=== PATIENT | male | born 1985 | race African-American/Black ===

== ENCOUNTER 2016-10-20 18:43 | Emergency (ER) | payer SELFPAY ==
[2016-10-20 19:00] VITALS: BP 88/58; PULSE 120; RESP 16; TEMP 99.4; O2SAT 98
[2016-10-20] MEDS ORDERED: SODIUM CHLOR 0.9% 1000 ML INJ 1,000 ML IV SCH (19:00)
[2016-10-20] MEDS ORDERED: SODIUM CHLOR 0.9% 250 ML INJ 250 ML IV ONE (19:00)
[2016-10-20] MEDS ORDERED: LIDOCAINE 1%/EPINEPHrine 1:100,000 SOLN 20 ML VIAL INFIL ONE (19:00)
--- NOTE | 2016-10-20 19:06 | PD ---
HPI Chief Complaint: Laceration/Skin Injury Time Seen by Provider: 18:56 Travel History International Travel<30 days: No Contact w/Intl Traveler<30days: No Traveled to known affect area: No History of Present Illness HPI This is a 31-year-old male who presents to the emergency department having been working on his stents in the yard when he felt a metal object stabbed him in the leg. He had a copious amount of bleeding. He says he bled through multiple towels at home. He tried to create a tourniquet out of the belt. Ultimately he was brought to the emergency Department. Here he feels very dizzy and lightheaded and doesn't feel like he can stand. PFSH Past Medical History Medical History: Denies Significant Hx Social History Tobacco Use: No Allergies-Medications (Allergen,Severity, Reaction): Coded Allergies: No Known Allergies (Unverified , 10/20/16) Reported Meds & Prescriptions Reported Meds & Active Scripts Active No Active Prescriptions or Reported Medications Review of Systems ROS Limitations: Clinical Condition Physical Exam Narrative GENERAL: Ill-appearing, diaphoretic SKIN: 2 cm laceration on the medial distal tibia which has pulsatile bleeding. HEAD: Atraumatic. Normocephalic. EYES: Pupils equal and round. No injection or drainage. ENT: Moist mucous membranes NECK: Trachea midline. CARDIOVASCULAR: Tachycardic. No murmur appreciated. 2+ DP pulse with normal capillary refill. RESPIRATORY: Clear to auscultation. Breath sounds equal bilaterally. GASTROINTESTINAL: Abdomen soft, non-tender, nondistended. MUSCULOSKELETAL: No obvious deformities. NEUROLOGICAL: Awake and alert. No obvious cranial nerve deficits. Moving all extremities. PSYCHIATRIC: Appropriate mood and affect; insight and judgment normal. Data Data Last Documented VS Vital Signs Date Time Temp Pulse Resp B/P Pulse Ox O2 Delivery O2 Flow Rate FiO2 10/20/16 21:37 98.4 70 18 110/61 98 Room Air Orders Lidocai-Epi 1%-1:100,000 Inj (Xylocaine- (10/20/16 19:00) Type And Screen (10/20/16 18:56) Blood Product Administration .UPON TRANSFUSION (10/20/16 18:56) Sodium Chlor 0.9% 250 Ml Inj (Ns 250 Ml (10/20/16 19:00) Complete Blood Count With Diff (10/20/16 18:56) Basic Metabolic Panel (Bmp) (10/20/16 18:56) Prothrombin Time / Inr (Pt) (10/20/16 18:56) Act Partial Throm Time (Ptt) (10/20/16 18:56) Sodium Chlor 0.9% 1000 Ml Inj (Ns 1000 M (10/20/16 19:00) Tibia/Fibula (Ap/Lat) (10/20/16 ) Tetanus/Diphtheria Tox Adult (Tetanus/Di (10/20/16 19:15) Red Blood Cells (Rbc) (10/20/16 19:36) Acetaminophen (Tylenol) (10/20/16 20:00) Labs Laboratory Tests Test 10/20/16 10/20/16 10/20/16 18:55 19:30 19:36 White Blood Count 8.0 TH/MM3 Red Blood Count 4.94 MIL/MM3 Hemoglobin 13.5 GM/DL Hematocrit 40.4 % Mean Corpuscular Volume 81.8 FL Mean Corpuscular Hemoglobin 27.3 PG Mean Corpuscular Hemoglobin 33.4 % Concent Red Cell Distribution Width 12.8 % Platelet Count 293 TH/MM3 Mean Platelet Volume 9.2 FL Neutrophils (%) (Auto) 48.3 % Lymphocytes (%) (Auto) 35.5 % Monocytes (%) (Auto) 12.4 % Eosinophils (%) (Auto) 2.9 % Basophils (%) (Auto) 0.9 % Neutrophils # (Auto) 3.9 TH/MM3 Lymphocytes # (Auto) 2.8 TH/MM3 Monocytes # (Auto) 1.0 TH/MM3 Eosinophils # (Auto) 0.2 TH/MM3 Basophils # (Auto) 0.1 TH/MM3 CBC Comment DIFF FINAL Differential Comment Prothrombin Time 10.7 SEC Prothromb Time International 1.0 RATIO Ratio Activated Partial 21.5 SEC Thromboplast Time Sodium Level 142 MEQ/L Potassium Level 3.0 MEQ/L Chloride Level 109 MEQ/L Carbon Dioxide Level 18.9 MEQ/L Anion Gap 14 MEQ/L Blood Urea Nitrogen 13 MG/DL Creatinine 2.02 MG/DL Estimat Glomerular Filtration 47 ML/MIN Rate Random Glucose 144 MG/DL Calcium Level 9.3 MG/DL Blood Type O POSITIVE O POSITIVE Antibody Screen NEGATIVE Crossmatch Leukocyte-Reduced Leukocyte-Reduced Red Blood Red Blood Cells Cells Blood Bank Comment MDM Medical Decision Making Medical Screen Exam Complete: Yes Emergency Medical Condition: Yes Interpretation(s) Hemoglobin is normal, hematocrit is normal GFR is 47 Potassium is 3 Differential Diagnosis Hemorrhagic shock, laceration, foreign body Narrative Course This is a 61-year-old male who presents to the emergency department having sustained a laceration to his left lower extremity with a copious amount of bleeding. When he came into the emergency department he had towels of blood clots around his leg and had attempted to make a tourniquet. He also reportedly lost a large amount of blood on the scene. Relatively small wound was visualized on the distal tibia and was repaired. Patient's bleeding subsided. On arrival he was tachycardic and hypotensive with a blood pressure in the 80s. He was given a liter of IV hydration and one unit of blood. He feels much better and his vital signs normalize. He does have some renal insufficiency which I discussed with him and he should have repeat blood work in 1 week with his primary care physician. He has normal neurovascular exam of his left lower extremity. I don't think any advanced imaging is warranted. Patient will be discharged home. Critical Care Narrative Aggregate critical care time was 35 minutes. Time to perform other separately billable procedures was not included in the critical care time. My time did not include minutes spent treating any other patients simultaneously or on activities that did not directly contribute to the patient's treatment. The services I provided to this patient were to treat and/or prevent clinically significant deterioration that could result in: Disability, I provided critical care services requiring my management, as noted below: Chart data review, documentation time, medication orders and management, vital sign assessments/reviewing monitor data, ordering and reviewing lab tests, ordering and interpreting/reviewing x-rays and diagnostic studies, care of the patient and discussion of the patient with the admitting physicians. Diagnosis Primary Impression: Hemorrhage Additional Instructions: If you develop fevers, redness, swelling, or discharge from your wound return to the emergency room. Keep your wound dry for 24 hours. After that time, wash gently with warm soap and water. Do not use peroxide. Do not soak in baths or go swimming. Have your sutures removed in 10-14 days. Have your kidney function checked by her primary care physician in one week to ensure that it is improving. Med/Other Pt SpecificInfo: No Change to Meds Scripts No Active Prescriptions or Reported Meds Disposition: 01 DISCHARGE HOME Condition: Stable Jacqueline Alva MD Oct 20, 2016 19:06
--- NOTE | 2016-10-20 19:11 | PD ---
Physical Exam Time Seen by Provider: 18:50 Data Data Last Documented VS Vital Signs Date Time Temp Pulse Resp B/P Pulse Ox O2 Delivery O2 Flow Rate FiO2 10/20/16 19:00 99.4 120 16 88/58 98 Orders Lidocai-Epi 1%-1:100,000 Inj (Xylocaine- (10/20/16 19:00) Type And Screen (10/20/16 18:56) Red Blood Cells (Rbc) (10/20/16 18:56) Blood Product Administration .UPON TRANSFUSION (10/20/16 18:56) Sodium Chlor 0.9% 250 Ml Inj (Ns 250 Ml (10/20/16 19:00) Complete Blood Count With Diff (10/20/16 18:56) Basic Metabolic Panel (Bmp) (10/20/16 18:56) Prothrombin Time / Inr (Pt) (10/20/16 18:56) Act Partial Throm Time (Ptt) (10/20/16 18:56) Sodium Chlor 0.9% 1000 Ml Inj (Ns 1000 M (10/20/16 19:00) Tibia/Fibula (Ap/Lat) (10/20/16 ) Tetanus/Diphtheria Tox Adult (Tetanus/Di (10/20/16 19:15) MDM Medical Record Reviewed: Yes Supervised Visit with [facility]: No Narrative Course The patient has a 1.5 cm linear laceration to left calf, he verbally consents to laceration repair. Procedures Procedure Narrative LACERATION LOCATION: Left calf LENGTH: 1.5 cm NUMBER OF STITCHES/SEAN: 5 REPAIR: The area of the laceration was prepped with Betadine and sterilely draped. The laceration was infiltrated with 1% lidocaine with epinephrine. The wound was copiously irrigated and explored without evidence of foreign body , tendon injury or neurovascular injury. The wound was closed using 4-0 PROLENE simple interrupted. This was a single layer repair. A sterile dressing was applied. The patient was advised to keep the dressing clean and dry. Patient tolerated the procedure well. Naren Marinelli Oct 20, 2016 19:11
[2016-10-20] MEDS ORDERED: TETANUS/DIPHTHERIA TOXOID ADULT 0.5 ML VIAL IM ONE (19:15)
[2016-10-20 19:21] LABS: AUTOMATED NEUTROPHIL # 3.9 TH/MM3 (1.8-7.7); BASOPHIL # 0.1 TH/MM3 (0-0.2); BASOPHIL % 0.9 % (0.0-2.0); EOSINOPHIL # 0.2 TH/MM3 (0-0.4); EOSINOPHIL % 2.9 % (0.0-4.0); HEMATOCRIT 40.4 % (39.0-51.0); HEMO FLAGS DIFF FINAL; LYMPH % 35.5 % (9.0-44.0); LYMPHOCYTE # 2.8 TH/MM3 (1.0-4.8); MEAN CELL VOLUME 81.8 FL (80.0-100.0); MEAN CORPUSCULAR HEMOGLOBIN 27.3 PG (27.0-34.0); MEAN CORPUSCULAR HGB CONC 33.4 % (32.0-36.0); MONO % 12.4 % (0.0-8.0); NEUT % 48.3 % (16.0-70.0); PLATELET COUNT 293 TH/MM3 (150-450); RED BLOOD COUNT 4.94 MIL/MM3 (4.50-5.90); RED CELL DISTRIBUTION WIDTH 12.8 % (11.6-17.2)
[2016-10-20 19:30] VITALS: BP 125/59; PULSE 84; RESP 18; TEMP 98.3; O2SAT 97
--- NOTE | 2016-10-20 19:41 | RADRPT ---
EXAM DATE/TIME: 10/20/2016 19:24 [facility] COMPARISON: No previous studies available for comparison. INDICATIONS : Foreign body, patient fell while fixing fence and fell on glass and metal pieces. MEDICAL HISTORY : None. SURGICAL HISTORY : None. ENCOUNTER: Initial ACUITY: 1 day PAIN SCORE: 8/10 LOCATION: Left Tibia FINDINGS: Two view examination of the left tibia demonstrates no evidence of fracture or dislocation. Bony min eralization is normal. The soft tissue structures are intact. No radiopaque foreign bodies are noted . CONCLUSION: No radiopaque foreign body identified. No fracture or dislocation. Tomas Card MD on October 20, 2016 at 19:38 Board Certified Radiologist. This report was verified electronically.
[2016-10-20 19:45] LABS: BICARBONATE 18.9 MEQ/L (21.0-32.0)
[2016-10-20 19:51] LABS: APTT (PATIENT) 21.5 SEC (24.3-30.1); PROTHROMBIN TIME - PATIENT 10.7 SEC (9.8-11.6)
[2016-10-20] MEDS ORDERED: ACETAMINOPHEN 500 MG CPLT PO ONE (20:00)
[2016-10-20 21:17] VITALS: BP 123/62; PULSE 74; RESP 18; TEMP 98.8; O2SAT 98
[2016-10-20 21:37] VITALS: BP 110/61; PULSE 70; RESP 18; TEMP 98.4; O2SAT 98
== END 2016-10-20 22:56 | disposition home or self-care (01) ==
LOC: NEPA 18:43
DX: S81.812A Laceration without foreign body, left lower leg, initial encounter (principal); R42 Dizziness and giddiness; R00.0 Tachycardia, unspecified; R58 Hemorrhage, not elsewhere classified; W45.8XXA Other foreign body or object entering through skin, initial encounter; Y93.89 Activity, other specified; Y92.007 Garden or yard of unspecified non-institutional (private) residence as the place of occurrence of the external cause; Z23 Encounter for immunization
CPT/HCPCS: 12001; 36430; 73590; 80048; 85025; 85610; 85730; 86850; 86900; 86901; 86920; 90471; 90714; 96360; 96361; 99285; J7030; J7050; P9016

== ENCOUNTER 2016-10-29 10:28 | Emergency (ER) | payer BC ==
[~2016-10-29] VITALS: Ht 177.8 cm; Wt 118.0 kg
[2016-10-29 10:30] VITALS: BP 156/97; PULSE 88; RESP 19; TEMP 98.2; O2SAT 98
--- NOTE | 2016-10-29 10:50 | PD ---
HPI . suture removal to left calf Chief Complaint: Wound/Suture/Staple Re-Check Time Seen by Provider: 10:50 Travel History International Travel<30 days: No Contact w/Intl Traveler<30days: No Traveled to known affect area: No History of Present Illness HPI 31-year-old male here for suture removal to his left calf. On October 20, 2016 patient sustained a wound to the left calf. He received 5 sutures. He tells me that he has been working since then and there is been some bleeding to the area. He denies any swelling, pus drainage or streaking. He denies any fever or chills. He needs a note to return to work. PFSH Past Medical History Diminished Hearing: No Social History Alcohol Use: No Tobacco Use: No Substance Use: No Allergies-Medications (Allergen,Severity, Reaction): Coded Allergies: No Known Allergies (Unverified , 10/29/16) Reported Meds & Prescriptions Reported Meds & Active Scripts Active No Active Prescriptions or Reported Medications Review of Systems General / Constitutional: No: Fever Eyes: No: Visual changes HENT: No: Headaches Cardiovascular: No: Chest Pain or Discomfort Respiratory: No: Shortness of Breath Gastrointestinal: No: Abdominal Pain Genitourinary: No: Dysuria Musculoskeletal: No: Pain Skin: Positive Other (left calf sutures), No Rash Neurologic: No: Weakness Psychiatric: No: Depression Endocrine: No: Polydipsia Hematologic/Lymphatic: No: Easy Bruising Physical Exam Narrative GENERAL: AAO x 3, no acute distress, Well-nourished, well-developed patient. SKIN: Warm and dry. No visible rashes or bruising. left calf with [address], two sutures are overgrown where there is minimal bleeding. Sutures removed and there is wound dehiscence. HEAD: Normocephalic and atraumatic. EYES: No scleral icterus. No injection or drainage. ENT: No nasal drainage noted. Mucous membranes pink. Airway patent. NECK: Supple, trachea midline. No JVD. CARDIOVASCULAR: Regular rate and rhythm without murmurs, gallops, or rubs. RESPIRATORY: Breath sounds equal bilaterally. No accessory muscle use. No rhonchi or rales. GASTROINTESTINAL: Abdomen soft, non-tender, nondistended. EXTREMITIES: No cyanosis or edema. BACK: Nontender without obvious deformity. No CVA tenderness. PSYCH: AAO x 3, normal affect. Data Data Last Documented VS Vital Signs Date Time Temp Pulse Resp B/P Pulse Ox O2 Delivery O2 Flow Rate FiO2 10/29/16 10:30 98.2 88 19 156/97 98 MDM Medical Decision Making Medical Screen Exam Complete: Yes Emergency Medical Condition: Yes Medical Record Reviewed: Yes (10/20/16 sutures left calf 5) Differential Diagnosis Suture removal, wound dehiscence, less likely cellulitis Narrative Course 31-year-old male here for suture removal to his left calf. On October 20, 2016 patient sustained a wound to the left calf. He received 5 sutures. He tells me that he has been working since then and there is been some bleeding to the area. He denies any swelling, pus drainage or streaking. He denies any fever or chills. He needs a note to return to work. Patient seen and examined. He does have 2 grown sutures and the episcopal for removal. There is some very minimal bleeding where the 2 grown sutures are located. 5 sutures were removed without incident. There is some wound dehiscence. Steri-Strips were applied with benzoin tincture. Clean gauze was applied. Patient was advised to keep dressing dry and clean. Discussed scarring. Advised if any signs of infection to come to the emergency department. Follow-up primary care provider. Patient verbalized understanding of instructions, questions were answered, and thanked me for their care. I advised them if their condition worsens, please return to the nearest emergency room for further care. Diagnosis Primary Impression: Encounter for removal of sutures Additional Impression: Wound dehiscence Patient Instructions: Acute Wound Care (ED), General Instructions Departure Forms: Tests/Procedures, Work Release Enter return to work date: Oct 29, 2016 Special Instructions: keep area covered for the next week while at work. Additional Instructions: Keep area clean and dry. Use gauze as we discussed and change 1-2 times a day. Watch for signs of infection: fever, redness, swelling, warmth, pus or drainage , red streaks around the cut, and increased pain from the area. Please return to emergency department if your symptoms return or worsen. Follow up with your primary care provider. This area will likely scar. Use over the counter Mederma to help reduce scarring. Scripts No Active Prescriptions or Reported Meds Disposition: 01 DISCHARGE HOME Condition: Stable Anna Otoole Oct 29, 2016 10:50
== END 2016-10-29 11:33 | disposition home or self-care (01) ==
LOC: NEPK 10:28
DX: S89.92XD Unspecified injury of left lower leg, subsequent encounter (principal); X58.XXXD Exposure to other specified factors, subsequent encounter; Z48.02 Encounter for removal of sutures
CPT/HCPCS: 99281

== ENCOUNTER 2016-11-06 23:20 | Emergency (ER) | payer BC ==
[~2016-11-06] VITALS: Ht 177.8 cm; Wt 118.0 kg
[2016-11-06 23:27] VITALS: BP 123/73; PULSE 85; RESP 16; TEMP 96.3; O2SAT 99
--- NOTE | 2016-11-07 00:18 | PD ---
HPI . Bleeding Chief Complaint: Bleeding Time Seen by Provider: 23:50 Travel History International Travel<30 days: No Contact w/Intl Traveler<30days: No Traveled to known affect area: No History of Present Illness HPI Patient presents with bleeding from a left leg wound. His initial injury was on October 20. He was inadvertently cut by his metal fence. He was actually in hemorrhagic shock at the time had to be resuscitated with fluids and a unit of blood. The wound was repaired. He presented back about 9 days later for suture removal. The wound did dehisce sutures were removed. Patient comes in to [facility] with acute, spontaneous hemorrhage from the wound. He states that the bleeding has been severe. He soaked through several towels and there was a lot of blood at the scene. He states that he is feeling dizzy and lightheaded. PFSH Past Medical History Diminished Hearing: No Social History Alcohol Use: No Tobacco Use: No Substance Use: No Allergies-Medications (Allergen,Severity, Reaction): Coded Allergies: No Known Allergies (Unverified , 11/06/16) Reported Meds & Prescriptions Reported Meds & Active Scripts Active No Active Prescriptions or Reported Medications Review of Systems Except as stated in HPI: all other systems reviewed are Neg HENT: Positive: Lightheadedness Skin: Positive Other (left leg wound) Physical Exam Narrative GENERAL: Awake and alert and in no acute distress. SKIN: Warm and dry. He has a wound to the medial aspect of the left lower extremity which has recently bled. However, there is no active bleeding. There is no evidence of infection. There is no drainage or redness. HEAD: Atraumatic. Normocephalic. EYES: Pupils equal and round. NECK: Trachea midline. CARDIOVASCULAR: Regular rate and rhythm. He is not tachycardic or hypotensive. RESPIRATORY: No accessory muscle use. MUSCULOSKELETAL: No obvious deformities. No edema. NEUROLOGICAL: Awake and alert. No obvious cranial nerve deficits. Motor grossly within normal limits. Normal speech. PSYCHIATRIC: Appropriate mood and affect; insight and judgment normal. Data Data Last Documented VS Vital Signs Date Time Temp Pulse Resp B/P Pulse Ox O2 Delivery O2 Flow Rate FiO2 11/07/16 01:08 90 18 115/64 11/06/16 23:27 96.3 99 Room Air Orders Orthostatic Vital Signs (11/06/16 23:50) Hgb & Hct (11/06/16 23:50) Wound Care (11/07/16 01:05) Labs Laboratory Tests Test 11/07/16 00:10 Hemoglobin 10.7 GM/DL Hematocrit 32.9 % MDM Medical Decision Making Medical Screen Exam Complete: Yes Emergency Medical Condition: Yes Medical Record Reviewed: Yes (please see history of present illness for pertinent recent medical records) Differential Diagnosis Differential diagnosis includes bleeding wound, wound infection, hemorrhagic shock Narrative Course Patient presents for a bleeding wound to the left lower extremity. He reports a large amount of blood loss. We will check orthostatic vital signs and an H& H. The wound is not actively bleeding. Vital Signs Date Time Temp Pulse Resp B/P Pulse Ox O2 Delivery O2 Flow Rate FiO2 11/07/16 01:08 90 18 115/64 11/07/16 01:08 96 18 106/61 11/07/16 01:07 81 18 120/70 11/06/16 23:27 96.3 85 16 123/73 99 Room Air Laboratory Tests Test 11/07/16 00:10 Hemoglobin 10.7 GM/DL Hematocrit 32.9 % Bleeding is currently controlled. The patient will be discharged home with instructions to follow with his primary care physician next week for recheck. Diagnosis Primary Impression: Hemorrhage Additional Instructions: Gently wash the wound twice daily with soap and water. Then apply a clean dressing. Pressure dressing if needed for brisk bleeding. Follow-up with your primary care doctor next week for recheck. Return here for bleeding that does not resolve with pressure. Scripts No Active Prescriptions or Reported Meds Disposition: DISCHARGE HOME Condition: Stable Leah Jernigan MD Nov 07, 2016 00:18
[2016-11-07 00:51] LABS: HEMATOCRIT 32.9 % (39.0-51.0); REVIEW FLAG FINAL
[2016-11-07 01:07] VITALS: BP 120/70; RESP 18
[2016-11-07 01:08] VITALS: BP_SYST 106; BP_SYST 115; BP_DIAS 61; BP_DIAS 64; RESP 18
== END 2016-11-07 02:00 | disposition home or self-care (01) ==
LOC: NEPC 23:20
DX: T79.2XXA Traumatic secondary and recurrent hemorrhage and seroma, initial encounter (principal); R42 Dizziness and giddiness
CPT/HCPCS: 85014; 85018; 99283